=== PATIENT | female | born 2000 | race Caucasian/White ===

== ENCOUNTER 2022-06-26 08:48 | Outpatient (CLI) | payer OTHER, SELFPAY ==
--- NOTE | ~2022-06-26 | US_ITS ---
EXAMINATION: US OB /maternal detail DATE: 06/26/2022 10:00 INDICATION: Second trimester anatomic survey TECHNIQUE: Real-time ultrasound of the pelvis was performed. COMPARISON: None. FINDINGS: There is a single living fetus in variable presentation. The placenta is anterior. heart rate i s 150 beats per minute (bpm). cardiac activity and movement are noted. The amniotic flui d index is subjectively normal. The three vessel cord, transverse views of the spine, and outflow tracts of the heart are not well de monstrated due to patient positioning. The following anatomy was identified as normal: 4 chamber heart cord insertion kidneys urinary bladder stomach diaphragm ventricles cisterna magna cerebellum The following biometric data were obtained: Biparietal diameter (BPD): 4.7 cm; head circumference (HC): 16.5 cm; abdominal circumference (AC): 16 .5 cm; femur length (FL): 3.0 cm. Estimated weight is 324 g +/- 48 g, which correlates with the 84th percentile when 11/18/2022 is used as estimated date of delivery. As single measurements, these parameters are each equal to the following estimated gestational ages w ith ranges of +/- 2 standard deviations: BPD: 20 weeks 1 days +/- 1 weeks 5 days. HC: 19 weeks 2 days +/- 1 weeks 3 days. AC: 20 weeks 4 days +/- 2 weeks 0 days. FL: 19 weeks 3 days +/- 1 weeks 6 days. estimated gestational age based solely on measurements from this exam is 19 weeks 6 days +/- 1 weeks 3 days. IMPRESSION: 1. Single living fetus in variable presentation. 2. Estimated weight is 324 g +/- 48 g, which correlates with the 84th percentile when 11/18/2022 is used as estimated date of delivery. 3. Transverse views of the spine, outflow tracts of the heart, and three-vessel cord not well demonst rated due to positioning. Reviewed, dictated and finalized at location B. ENT SERVICES MANAGER IMPRESSION: 1. Single living fetus in variable presentation. 2. Estimated weight is 324 g +/- 48 g, which correlates with the 84th per centile when 11/18/2022 is used as estimated date of delivery. 3. Transverse views of the spine, outflow tracts of the heart, and three-vessel cord not well demonstrated due to positioning.
== END 2022-06-26 08:49 | disposition home or self-care (01) ==
PROVIDERS: PCP Obstetrics & Gynecology Gynecologic Oncology; Visit Provider Obstetrics & Gynecology Gynecologic Oncology
DX: Z36.9 Encounter for antenatal screening, unspecified (principal); Z3A.19 19 weeks gestation of pregnancy
CPT/HCPCS: 76805

== ENCOUNTER → 2022-07-31 10:47 | Outpatient (CLI) | payer OTHER, SELFPAY ==
--- NOTE | ~2022-07-31 | US_ITS ---
EXAMINATION: US OB limited DATE: 07/31/2022 11:21 INDICATION: Incomplete second trimester anatomic survey TECHNIQUE: Real-time ultrasound of the pelvis was performed. The interpreting radiologist was not pre sent for the study. COMPARISON: 06/26/2022 FINDINGS: There is a single living fetus in vertex presentation. The placenta is anterior and 7.6 cm from the internal cervical os. The cervical length is approximately 3 cm. cardiac activity and movement are noted. heart rate is 142 beats per minute (bpm). The amniotic fluid index is subjectively normal. The spine, outflow tracts of the heart, and three-vessel cord appear norm al. IMPRESSION: 1. Single living fetus in vertex presentation. Reviewed, dictated and finalized at location A. [facility] [employer]
== END ==
PROVIDERS: PCP Nurse Practitioner; Visit Provider Advanced Practice Midwife
DX: Z36.9 Encounter for antenatal screening, unspecified (principal); Z3A.00 Weeks of gestation of pregnancy not specified
CPT/HCPCS: 76815

== ENCOUNTER 2022-08-10 13:04 | Emergency (ER) | payer OTHER, SELFPAY ==
[2022-08-10 13:42] VITALS: BP 119/78; PULSE 106; RESP 16; TEMP 36.6; O2SAT 100
[2022-08-10 13:43] VITALS: BP 119/78; PULSE 106; RESP 16; TEMP 36.6; O2SAT 100
--- NOTE | 2022-08-10 14:06 | ED.URI ---
HPI - URI/Sore Throat General Chief Complaint: Upper Respiratory Infection Stated Complaint: sore throat,chest hurts,runny nose,cough Time Seen by Provider: 08/10/22 13:45 Source: patient Mode of arrival: ambulatory Limitations: no limitations History of Present Illness HPI Narrative: Ms. Taylor is a 22-year-old female patient presenting to the clinic today with complaints of sore throat, chest discomfort, runny nose, and cough. She reports that her chest is hurting worse with a cough. She denies any known fever. States the pain dull ache with burning sensation to the chest and hurts when she coughs MD elicited complaint: sore throat and nasal congestion Related Data Home Medications Medication Instructions Recorded Confirmed vits 75-iron 28 mg-folic pkg PO 08/10/22 acid 800 mcg-omega3 440 mg oral pack Allergies Allergy/AdvReac Type Severity Reaction Status Date / Time amoxicillin Allergy Rash Verified 08/10/22 13:42 Review of Systems Review of Systems: Pertinent positives per HPI. Patient denies any fever, chills, rash, headache, visual changes, dizziness, shortness of breath, chest pain, palpitations, nausea, vomiting, diarrhea, constipation, abdominal pain, or any urinary issues. PMFSH Comments At the time of my signature, I reviewed and agree with the nursing past medical, surgical, social, and family history. There is no relevant family history pertinent to the patient complaint. Exam Narrative: General: Well-developed, well nourished, in no apparent distress Head: Normocephalic, atraumatic Eyes: Pupils equally round and reactive to light bilaterally, EOM intact, sclera and conjunctive clear, no discharge, lids normal Ears: TMs intact and clear, ear canals clear, no drainage, grossly hearing normal. Nose: Nares patent, clear nasal discharge, no inflammation, no sinus tenderness. Mouth: Oral pharynx without lesions or masses, good dentition, MMM. Oropharynx red Neck: Supple, trachea midline, no enlargement of anterior or posterior cervical nodes, no thyroid masses or goiter palpable. Cardio: Regular rate and rhythm, s1 and s2 normal, no murmur appreciated. Resp: Clear to auscultation bilaterally, no rhonchi, rales, wheezing or rubs Course Course Emergency Course: Portions of this record may have been created with voice recognition software. Level of Care: Express Care Visit Vital Signs Vital signs: Vital Signs Temperature 36.6 C 08/10/22 13:42 Pulse Rate 106 H 08/10/22 13:42 Respiratory Rate 16 08/10/22 13:42 Blood Pressure 119/78 08/10/22 13:42 Pulse Oximetry 100 08/10/22 13:42 Temperature 36.6 C 08/10/22 13:43 Pulse Rate 106 H 08/10/22 13:43 Respiratory Rate 16 08/10/22 13:43 Blood Pressure 119/78 08/10/22 13:43 Pulse Oximetry 100 08/10/22 13:43 Vital signs reviewed MDM - URI/Sore Throat MDM Narrative Medical decision making narrative: At the time of visit patient is resting comfortably on the exam table. Influenza and COVID testing work performed in the clinic today. Patient is positive for influenza A. Strep culture was obtained and sent to the lab. Supportive measures were discussed with the patient she voiced understanding of discharge instructions and agrees to treatment plan. Differential Diagnosis Differential diagnosis: Likely upper respiratory infection, otitis media, sinusitis, viral infection, bronchitis, influenza, pharyngitis and other (COVID) Discharge Plan Discharge Prescriptions: No Action Daily [id number] mg-mcg-mg Combo Pack PO Follow-up/Referrals: Antony,LAURA JonesC [Primary Care Provider] - Quality NIHSS Nursing Documentation ED NIHSS nursing documentation: reviewed/agree
== END 2022-08-10 14:18 | disposition home or self-care (01) ==
PROVIDERS: Emergency Provider Nurse Practitioner Family; PCP Nurse Practitioner
DX: J10.1 Influenza due to other identified influenza virus with other respiratory manifestations (principal); Z20.822 Contact with and (suspected) exposure to COVID-19
CPT/HCPCS: 87081; 87426; 87804; 99213; C9803; G0463

== ENCOUNTER 2022-11-28 12:10 | Outpatient (CLI) | payer OTHER, SELFPAY ==
[2022-11-28 17:06] LABS: Alanine Aminotransferase 39 U/L (6-35); Albumin Level 4.4 g/dL (3.5-5.1); Alkaline Phosphatase 85 U/L (38-126); Amylase 71 U/L (30-110); Aspartate Amino Transferase 38 U/L (14-36); Bilirubin,Total 0.5 mg/dL (0.2-1.3); Lipase 58 U/L (23-300)
== END 2022-11-28 12:11 | disposition home or self-care (01) ==
PROVIDERS: PCP Nurse Practitioner; Visit Provider Surgery
DX: K80.10 Calculus of gallbladder with chronic cholecystitis without obstruction (principal)
CPT/HCPCS: 36415; 80076; 82150; 83690

== ENCOUNTER 2022-12-02 01:55 | Day surgery (SDC) | payer OTHER, SELFPAY ==
--- NOTE | 2022-11-27 15:22 | PC.NURSE ---
Report to the Outpatient Waiting Room, entrance under the green pavilion located off [facility], at time 7:00 on date 12/02/22. Planned Procedure Time: 9:00. Time changes happen often and if your time is changed the preop area will call you the afternoon before. - You and your visitor will be asked to self-screen and do not enter if you have any COVID symptoms. - A mask is optional within the hospital at this time. Patients may have clear liquids (water, carbonated beverages, clear teas, apple juice) until 3 hours prior to surgery with a maximum of 20 ounces. - No food from midnight until time of surgery Take the following medications with a SIP of water the morning of surgery: NONE DO NOT STOP ANY OF YOUR OTHER PRESCRIPTION MEDICATIONS PRIOR TO SURGERY EXCEPT THE FOLLOWING Medications to discontinue per physician: VITAMINS/SUPPLEMENTS Date to take last dose: 11/28/22 Please no make-up, nail congolese, hairspray, perfume, deodorant, or body powder the day of surgery. No jewelry (including any body piercings) or valuables the day of surgery, leave them at home. Please take a shower or bath the night before, or the morning of, surgery with an antibacterial soap (HIBICLENS). Wear comfortable, loose fitting clothing. - Jewelry must be removed prior to entering the operating room. Rings and piercings that are not removed may be cut off. - The hospital will not accept responsibility for valuables. - Please leave all valuables, including medications, at home the day of surgery. If you are going home after surgery, a licensed street flusher driver must drive you home. - NO public transportation without another adult if you receive anesthesia. - We recommend that an adult stay with you for 24 hours following discharge. - We also recommend that you do not drive, make important decision, drink alcoholic beverages, or take any drugs that were not prescribed by your health care provider for at least 24 hours after your discharge time. Follow any additional instructions given to you from your surgeon. If you or anyone in your household have experienced Covid symptoms in the past week, please notify your surgeon or the nurse liaison at the phone number below for possible testing. Telephone instructions given to PT Danielle ARROYO and asked if any additional questions and then verbalized understanding. Patient advised to call surgeon office or pre surgery nurse liaison [phone] if any additional questions.
[2022-12-02] VITALS (9 sets, daily range): BP systolic 120–134; BP diastolic 67–80; PULSE 55–81; RESP 14–22; TEMP 36.1–36.6; O2SAT 99–100
--- NOTE | 2022-12-02 07:55 | P.PNAN_ITS ---
Anes - Initial Pre Proc Eval Procedure: Operation Date: 12/02/22 09:00 Proposed Procedures p Robotic Laparoscopic Cholecystectomy - Rylie Ji MD Date/Time: 12/02/22 07:55 Surgeon: Rylie Ji MD Pre Op Diagnosis: chronic cholecystitis Patient Data Age: 22 Gender: F Height: 1.63 m Weight: 79.4 kg Allergies Allergy/AdvReac Type Severity Reaction Status Date / Time amoxicillin Allergy Rash Verified 11/27/22 15:18 Home Medications Medication Instructions Recorded Confirmed Type [id number] 1 mg 1 tablet PO DAILY 08/10/22 11/27/22 History tablet Patient hx anesthesia problems: none Family hx anesthesia problems: none Results Review: All pre-operative results and documents have been reviewed as part of the pre- operative evaluation. [facility] Past Medical History Medical History Depression with anxiety Surgical History Surgical History History of excision of mass 2016 benign neck mass Social History Social History Smoking status: Never smoker Alcohol intake: never Alcohol use details: rare Substance use: never Substance use type: does not use Living arrangements: with family Occupation/Education: occupation Additional occupation/education comments: Daycare Spiritual care concerns: No Anes - Eval Final PreProcedure Day of Procedure 12/02/22 07:55 Patient weight: obese Heart: regular rate and rhythm Lungs: clear to auscultation Airway: Mallampati scale class II Neurological: alert and oriented Last oral intake: >/= 8 hours ASA classification: II Emergent: no Anesthetic plan: proceed Anesthesia type and monitoring: general ETT and standard monitoring Results Review: All pre-operative results and documents have been reviewed as part of the pre-operative evaluation. Informed Consent: The patient's anesthetic plan and its attendant risks and benefits were discussed with the patient/family/POA. Questions were solicited and answers provided to the satisfaction of the patient/family/POA.
[2022-12-02] MEDS: KETOROLAC 15 MG/ML VIAL (*BKC) IV PUSH (08:00)
[2022-12-02] MEDS: LACTATED RINGERS 1,000 ML 30 ML IV CONT ×2 (08:00→10:21)
[2022-12-02] MEDS: INDOCYANINE GREEN 25 MG VIAL WITH DILUENT 3.75 MG IV PUSH (08:00)
[2022-12-02] MEDS: ACETAMINOPHEN 500 MG TABLET 1000 MG PO (08:00)
--- NOTE | 2022-12-02 08:50 | WPDHPUPDATE1 ---
History and Physical Update Update Date/Time: 12/02/22 08:50 History and Physical has been reviewed, including an updated exam of the patient. There are NO changes in the patient's condition. Risks, benefits, and alternatives have been discussed and questions answered. Patient agrees to proceed with procedure.
[2022-12-02] MEDS: ceFAZolin 2 GM/D5W 50 ML 2 GM/50 ML BAG IVPB (09:07)
[2022-12-02] MEDS: BUPIVACAINE/EPINEPHRINE 0.5% 50 ML VIAL 30 ML INFILTRATE (09:32)
--- NOTE | 2022-12-02 10:17 | W.PM.PROC2 ---
Procedure Note - Detailed Date of Procedure 12/02/22 Pre-op Diagnosis chronic cholecystitis with cholelithiasis Post-op Diagnosis Same Procedure Performed Robotic assisted cholecystectomy Surgeon Rylie Ji MD Anesthesia General Indications 22-year-old female presenting to the office complaining of postprandial pain upper abdominal pain, bloating. Workup, including imaging, significant for chronic cholecystitis, cholelithiasis. Findings moderate cholecystitis Description of Procedure The patient was taken to the operating room and placed in the supine position. After adequate induction of general anesthesia, the patient was prepped and draped in the normal sterile fashion. A time-out was then done to verify the patient's identity, as well as the procedure being performed. I began by making a 8 mm incision in the periumbilical region. A Veress needle was then placed in the peritoneal cavity and CO2 gas was insufflated. After adequate pneumoperitoneum was achieved, the Veress needle was removed and a 8 mm Optiview trocar was placed under direct visualization. Once into the abdominal cavity, the introducer was removed and the laparoscope was placed through this trocar site. Under direct visualization, I placed a further 8 mm port in the left mid abdomen and 2 additional 8 mm ports in the right mid abdomen. The robot was then docked to these ports sites. I then went to the console. The gallbladder was then identified and noted to be moderately inflamed. I was able to place a grasper at the dome of the gallbladder and this was retracted up and over the liver. A 2nd retractor was used to grasp the infundibulum and retracted laterally. This allowed visualization and dissection of the triangle of Calot. There were some omental adhesions to the gallbladder and these were taken down with the cautery. I then began dissection around the triangle Calot. I first identified the cystic duct, I was able to visualize the entirety of the duct from its proximal insertion into the gallbladder to its distal junction with the common hepatic/common bile duct junction. I then used the firefly visualization at this point to confirm the anatomy. The proximal cystic duct was then further skeletonized, clipped, and transected. Next I visualized the cystic artery. Again the structure was skeletonized, clipped, and transected. I then again used firefly to confirm anatomy and no aberrant anatomy was noted. I then used the Bovie cautery to take down the peritoneal attachments of the gallbladder off the liver bed. Once the gallbladder specimen was completely detached, an Endo pouch was placed through the left 8 mm port site and the gallbladder specimen was placed in the endo-pouch and subsequently removed. Of note, I made a cholecystostomy and decompressed the gallbladder to facilitate removal. I then re-examined the right upper quadrant. Hemostasis was noted in the liver bed and the clips were noted to be in good position on both the duct and the artery. No other pathology was seen in the right upper quadrant. All instruments were then removed and the robot was undocked. The abdomen was then desufflated and all ports were removed. All port sites were then closed with 4-0 Monocryl subcuticular suture. Dermabond was placed on each was wound. The patient tolerated the procedure well and was extubated in the operating room postop. The patient will now be transferred to the recovery room in stable condition. Estimated Blood Loss 5 Drains No Packing No Pathology Yes Complications No immediate complications Condition Stable Disposition PACU [facility] Billing Surgery - Charge Forward: Surgery Billing
[2022-12-02] MEDS: fentaNYL CITRATE INJ (*CRX) 100 MCG/2 ML VIAL 25 MCG IV PUSH ×4 (10:36→11:00)
--- NOTE | 2022-12-02 11:37 | SUR.PHASEII ---
Patient was all ready to come to outpatient and ARRANGING FUNERAL DIRECTOR had to draw some blood so that is why there is a delay in vitals from PACU to outpatient.
[2022-12-02] MEDS: oxyCODONE HCL (*CRX) 5 MG TAB IR PO (12:05)
[2022-12-02] MEDS: ONDANSETRON INJ 4 MG/2 ML VIAL IV PUSH (12:05)
== END 2022-12-02 12:54 | disposition home or self-care (01) ==
PROVIDERS: PCP Nurse Practitioner; Visit Provider Surgery
PROC: 0FT44ZZ Resection of Gallbladder, Percutaneous Endoscopic Approach (ICD-10-PCS; CPT 47562; principal; 2022-12-02 09:00)
DX: K80.10 Calculus of gallbladder with chronic cholecystitis without obstruction (principal); E66.9 Obesity, unspecified; Z68.30 Body mass index [BMI] 30.0-30.9, adult
CPT/HCPCS: 47562; S2900; 36415; 86850; 86860; 86870; 86880; 86900; 86901; 86902; 86971; 88304; A9270; J0690; J1100; J1885; J2250; J2405; J2710; J3010; J7030; J7120